=== PATIENT | female | born 1950 | race Caucasian/White ===

== ENCOUNTER 2018-06-28 11:56 | Emergency (ER) | payer OTHER ==
--- NOTE | 2018-06-28 12:34 | EDPHY ---
H & P Stated Complaint: HTN Time Seen by Provider: 06/28/18 12:33 - Personal History Current Tetanus/Diphtheria Vaccine: Yes Current Tetanus Diphtheria and Acellular Pertussis (TDAP): Yes - Medical/Surgical History Hx Asthma: No Hx Chronic Respiratory Disease: No Hx Diabetes: No Hx Cardiac Disease: No Hx Renal Disease: No Hx Cirrhosis: No Hx Alcoholism: No Hx HIV/AIDS: No Hx Splenectomy or Spleen Trauma: No Other PMH: HTN, L hip surgery - Social History Smoking Status: Never smoked Constitutional: Initial Vital Signs Temperature (C) 36.4 C 06/28/18 12:06 Heart Rate 117 H 06/28/18 12:06 Respiratory Rate 16 06/28/18 12:06 Blood Pressure 221/121 H 06/28/18 12:06 O2 Sat (%) 96 06/28/18 12:06 O2 Delivery Mode Room Air Allergies/Adverse Reactions: Penicillins Allergy (Verified 06/28/18 12:06) Home Medications: Medication Instructions Recorded Losartan-Hctz 100-12.5 mg Tab 06/28/18 Medical Decision Making ED Course/Re-evaluation: CHIEF COMPLAINT: Feels foggy HISTORY OF PRESENT ILLNESS: 68-year-old female who is been in [place] this past week. She has been ingesting large quantities of marijuana. She has been smoking, they being, and eating marijuana. She has a marijuana license in [place] and she states that she has used marijuana but she is probably you so much that she is quite foggy at this point. Her friend is with her who thinks that she can't remember things very well. Patient denies any specific complaints. Patient states that she did sleep quite a while. Patient denies any injuries any falls any syncope any chest pain any fevers any chills any headache or any other symptoms. REVIEW OF SYSTEMS: A comprehensive 10 system review of systems is otherwise negative aside from elements mentioned in the history of present illness and medical decision making. PHYSICAL EXAM: HR, BP, O2 Sat, RR. Temp noted General Appearance: Alert, well hydrated, appropriate, and non-toxic appearing. Head: Atraumatic without scalp tenderness or obvious injury Eyes: Pupils equal, round, reactive to light and accommodation, EOMI, no trauma , no injection. Ears: Clear bilaterally, no perforation, normal landmarks Nose: Atraumatic, no rhinorrhea, clear. Throat: There is no erythema or exudates, no lesions, normal tonsils, mucus membranes moist. Neck: Supple, 2+ carotid upstroke, nontender, no lymphadenopathy. Respiratory: No retractions, no distress, no wheezes, and no accessory muscle use. Lungs are clear to auscultation bilaterally. Cardiovascular: Regular rate and rhythm, no murmurs, rubs, or gallops. Bilateral carotid, radial, dorsalis pedis, and posterior tibial pulses intact. Good capillary refill all extremities. Gastrointestinal: Abdomen is soft, nontender, non-distended, no masses, no rebound, no guarding, no peritoneal signs. Musculoskeletal: Normal active ROM of all extremities, atraumatic. Neurological: Alert, appropriate, and interactive. The patient has normal DTRs and non-focal cranial nerves, motor, sensory, and cerebellar exam. Skin: No rashes, good turgor, no nodules on palpation. Past medical history: Noncontributory Past surgical history: Noncontributory Family history: Noncontributory Social history: , retired, does not abuse tobacco or alcohol, uses marijuana and has a license for that in [place] DIAGNOSTICS/PROCEDURES/CRITICAL CARE TIME: The 12 lead EKG was interpreted by myself. See hard copy and/or "tracemaster" electronic copy for interpretation. Normal sinus mechanism no ischemia DIFFERENTIAL DIAGNOSIS: The differential diagnosis for the patient's altered mental status included but was not limited to hypoglycemia, infectious process, electrolyte abnormality, head injury, neurologic process, anemia, cardiac process, and intoxicants. MEDICAL DECISION MAKING: This patient has been using large amounts of marijuana this week and feels little bit foggy. Her bedside chemistries completely normal except for an elevated glucose but she is not fasting. Additionally, she has a normal EKG and a normal bedside troponin. We will discharge her to stay hydrated and stop using marijuana until she returns back to [place] - Data Points Laboratory Results: 06/28/18 06/28/18 13:03 13:00 POC Hgb 17.0 gm/dL H gm/dL (12.6-16.3) POC Hct 50 % H % (38-47) POC Sodium 141 mEq/L mEq/L (135-145) POC Potassium 3.8 mEq/L mEq/L (3.3-5.0) POC Chloride 103 mEq/L mEq/L (97-110) POC BUN 16 mg/dL mg/dL (7-23) POC Creatinine 0.7 mg/dL mg/dL (0.6-1.0) POC Glucose 129 mg/dL H mg/dL (70-100) POC Troponin I 0.00 ng/mL ng/mL (0.00-0.08) Point of Care Test Results: Chemistry 06/28/18 06/28/18 13:03 13:00 POC Sodium 141 mEq/L mEq/L (135-145) POC Potassium 3.8 mEq/L mEq/L (3.3-5.0) POC Chloride 103 mEq/L mEq/L (97-110) POC BUN 16 mg/dL mg/dL (7-23) POC Creatinine 0.7 mg/dL mg/dL (0.6-1.0) POC Glucose 129 mg/dL H mg/dL (70-100) POC Troponin I 0.00 ng/mL ng/mL (0.00-0.08) ISTAT H&H 06/28/18 13:03 POC Hgb 17.0 gm/dL H gm/dL (12.6-16.3) POC Hct 50 % H % (38-47) Departure - Departure Disposition: Home, Routine, Self-Care Clinical Impression: Marijuana intoxication Qualifiers: Complication of substance-induced condition: uncomplicated Qualified Code(s): F12.920 - Cannabis use, unspecified with intoxication, uncomplicated Condition: Good Instructions: Medicinal Use of Cannabis (ED) Additional Instructions: Follow up with your primary care provider as needed. Referrals: Ana Llanes MD [Medical Doctor] - As per Instructions
--- NOTE | 2018-06-28 13:45 | CPEKG ---
Test Reason : OPEN Blood Pressure : / mmHG Vent. Rate : 092 BPM Atrial Rate : 094 BPM P-R Int : 138 ms QRS Dur : 087 ms QT Int : 369 ms P-R-T Axes : 060 -14 076 degrees QTc Int : 457 ms Sinus rhythm Confirmed by Dylan Mcwilliams ([id number]) on 06/28/2018 1:44:28 PM Referred By: Confirmed By:Dylan Mcwilliams
[2018-06-28 13:48] VITALS: BP 180/98
== END 2018-06-28 13:48 | disposition home or self-care (01) ==
DX: F12.920 Cannabis use, unspecified with intoxication, uncomplicated (principal)
CPT/HCPCS: 82435-PO; 82565-PO; 82947-PO; 84132-PO; 84295-PO; 84484-PO; 84520-PO; 85014-PO